=== PATIENT | male | born 1945 | race Caucasian/White ===

== ENCOUNTER 2023-03-12 19:05 | Emergency (ER) | payer MEDICARE ==
[2023-03-12] MEDS ORDERED: Sodium Chloride 0.9% 1000 ML 1,000 ML IV STA ×2 (19:26→20:14)
--- NOTE | 2023-03-12 19:44 | XRAY ---
CLINICAL HISTORY:Stroke COMPARISON:None. TECHNIQUE:Axial non-contrast CT scan of the brain was performed from the skull base to the high parietal region. ;CTDI 107.84 mGy, DLP 1211.47 mGycm. FINDINGS: Limited examination due to motion artifacts, degrading image quality at both frontal lobes anteriorly predominantly. No acute intracranial abnormality is present. No evidence of acute cortical infarction, hemorrhage, mass, or mass effect. There are periventricular areas of low attenuation throughout the deep white matter. Age-related central and cortical involutional brain changes are noted. No abnormal extra-axial fluid collections are present. The posterior fossa is unremarkable. The skull base and calvarium are intact. The included portions of the paranasal sinuses and mastoid air cells are clear. Rafia bullosa in the right middle turbinate appears infected. IMPRESSION: 1. Limited examination due to motion artifacts, degrading image quality at both frontal lobes anteriorly predominantly. 2. No acute intracranial abnormality is present. 3. Age-matched involutional brain changes. 4. Early changes of a stroke may not be detected on a CT scan. If strong clinical suspicion of stroke then suggest MRI with diffusion-weighted imaging. The [facility] ER was called at [phone] at 06:39 PM ACCESS RN, 03/12/2023 and results were verbally communicated to Jonny Siegel for the negative stroke. Electronically Signed by: Tavares Guillen MD. (03/12/2023 18:44:00 ACCESS RN)
[2023-03-12 20:05] LABS: Absolute Neutrophil Ct (ANC) 5.93 x10^3/uL (1.4-6.9); BASOPHIL % 0.4 % (0.0-0.4); Basophil (Absolute #) 0.03 x10^3/uL (0-0.4); Eosinophil % 0.1 % (0.00-5.0); Eosinophil (Absolute #) 0.01 x10^3/uL (0-0.5); Hematocrit 39.1 % (42-50); Hemoglobin 13.3 g/dL (12.5-18.0); IMMATURE GRAN # 0.03 x10^3u/L (0.00-0.03); IMMATURE GRAN % 0.4 % (0.00-0.4); Lymphocyte (Absolute #) 0.74 x10^3/uL (1.0-4.6); Lymphocytes % 10.4 % (24.0-44.0); Mean Cell Volume 91.6 fL (78-100); Mean Corpuscular Hemoglobin 31.1 pg (26-32); Mean Platelet Volume 10.6 fL (7.5-11.0); Monocyte (Absolute #) 0.39 x10^3/uL (0.0-1.3); Monocytes % 5.5 % (0.0-12.0); Neutrophil % 83.2 % (36.0-66.0); Platelet Count 307 x10^3/uL (150-450); Red Blood Count 4.27 x10^6/uL (4.1-5.6); Red Cell Distribution Width 13.3 % (11.5-14.0); White Blood Count 7.1 x10^3/uL (4.0-10.5)
[2023-03-12] MEDS ORDERED: Sodium Chloride 0.9% 1000 ML 1,000 ML ONE (20:10)
[2023-03-12 20:21] LABS: ALKALINE PHOSPHATASE 87 U/L (38-126); ANION GAP 13.1 MEQ/L (5-15); BLOOD UREA NITROGEN 19 mg/dL (9-20); CHLORIDE 92 mmol/L (98-107); Carbon Dioxide 24 mmol/L (22-30); Creatinine 1 0.54 mg/dL (0.66-1.25); EST GLOMERULAR FILTRATION RATE > 60.0 ML/MIN; Glucose 131 mg/dL (74-106); MAGNESIUM 2.2 mg/dL (1.6-2.3); Potassium 4.1 mmol/L (3.5-5.1); SGOT/AST 29 U/L (17-59); SGPT/ALT 23 U/L (0-50); SODIUM 125 mmol/L (137-145); Total Protein 6.7 g/dL (6.3-8.2)
--- NOTE | 2023-03-12 20:28 | ERPHSYRPT ---
- History of Present Illness Time Seen by Provider: 03/12/23 20:25 Source: patient, family, EMS Exam Limitations: no limitations Patient Subjective Stated Complaint: per ems, pt had seizure like activity- tonic clonic activity, while driving. was able to pull car over and pt was unresponsive for approx 10 minutes following. when ems arrived on scene. pt was agitated, confused, and combative. pt cont to have confusion, not combative at th is time. Triage Nursing Assessment: pt resting in bed. answers some questions. pt oriented to person only. skin warm and dry. pt incont of urine- strong odor noted. respirations nonlabored. pupils equal and reactive. no facial droop noted. pt moves upper ext without diff. lower ext weakness in pt's normal d/t polio. Physician History: per ems, pt had seizure like activity- tonic clonic activity, while driving. was able to pull car over and pt was unresponsive for approx 10 minutes following. when ems arrived on scene. pt was agitated, confused, and combative. pt cont to have confusion, not combative at th is time. Timing/Duration: today Severity: mild Character of Deficits: none Baseline/Normal Cognition: alert 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 Current Cognition: alert 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 Associated Symptoms: confusion, weakness, No loss of consciousness, No slurred speech Allergies/Adverse Reactions: No Known Drug Allergies Allergy (Verified 03/12/23 19:15) PER Home Medications: Unobtainable 03/12/23 [History] Hx Tetanus, Diphtheria Vaccination/Date Given: No (unsure) Hx Influenza Vaccination/Date Given: No Hx Pneumococcal Vaccination/Date Given: No Immunizations Up to Date: No Travel Risk - International Travel Have you traveled outside of the country in past 3 weeks: No - Coronavirus Screening Are you exhibiting any of the following symptoms?: No Close contact with a COVID-19 positive Pt in past 14-21 Days: No - Vaccine Status Have you recieved a Covid-19 vaccination: No (unsure) - Review of Systems Constitutional: No Fever, No Chills Eyes: No Symptoms Ears, Nose, & Throat: No Symptoms Respiratory: No Cough, No Dyspnea Cardiac: No Chest Pain, No Edema, No Syncope Abdominal/Gastrointestinal: No Abdominal Pain, No Nausea, No Vomiting, No Diarrhea Genitourinary Symptoms: Dysuria Musculoskeletal: No Back Pain, No Neck Pain Skin: No Rash Neurological: Seizure, No Dizziness, No Focal Weakness, No Gait Changes, No S ensory Changes Psychological: No Symptoms Endocrine: No Symptoms All Other Systems: Reviewed and Negative - Past Medical History Pertinent Past Medical History: Yes Cardiac History: Hypertension Other Medical History: hx of polio as a child with some mobility issues. recent dx of htn - Past Surgical History Other Surgical History: unsure - Social History Smoking Status: Former smoker Exposure to second hand smoke: No Drug Use: none Patient Lives Alone: No - Nursing Vital Signs Nursing Vital Signs: Initial Vital Signs Temperature 98.0 F 03/12/23 19:06 Pulse Rate 77 03/12/23 19:06 Respiratory Rate 16 03/12/23 19:06 Blood Pressure 140/85 03/12/23 19:06 O2 Sat by Pulse Oximetry 96 03/12/23 19:06 Pain Scale Pain Intensity 0 - [place] Coma Scale Best Eye Response (Cuco): (4) open spontaneously Best Verbal Response (Cuco): (5) oriented Best Motor Response (Cuco): (6) obeys commands [place] Total: 15 - Physical Exam General Appearance: no apparent distress, alert Eye Exam: bilateral eye: PERRL, EOMI Ears, Nose, Throat Exam: normal ENT inspection, moist mucous membranes Neck Exam: normal inspection, non-tender, supple Respiratory: normal breath sounds, lungs clear, airway intact, No respiratory distress Cardiovascular: regular rate/rhythm, No edema Gastrointestinal: soft, No tenderness, No distention Back Exam: normal inspection Extremity Exam: normal inspection, No pedal edema Mental Status: alert, 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, 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 Exam: normal hearing, normal speech, PERRL, tongue midline Coordination/Gait: normal finger to nose, normal gait Skin Exam: normal color, warm, dry, No rash SpO2: 96 - Course Nursing assessment & vital signs reviewed: Yes - Radiology Exams Chest X-ray Interpretation: Reviewed by me, Negative - CT Exams Head CT Interpretation: Tele-radiologist Report (negative), No/Intracranial Hemorrhag Ordered Tests: Active Orders 24 hr Category Date Time Status Power Checker STAT Care 03/12/23 19:19 Active EKG-ER Only STAT Care 03/12/23 19:18 Active IV Insertion STAT Care 03/12/23 19:18 Active NPO (ED) STAT Care 03/12/23 19:18 Active NPO (ED) STAT Care 03/12/23 19:27 Active CHEST 1 VIEW (PORTABLE) Stat Exams 03/12/23 19:27 Taken HEAD WITHOUT CONTRAST [CT] Stat Exams 03/12/23 19:07 Completed CBC W DIFF Stat Lab 03/12/23 19:40 Completed CMP Stat Lab 03/12/23 19:40 Completed ETHYL ALCOHOL Stat Lab 03/12/23 19:40 Completed MAGNESIUM Stat Lab 03/12/23 19:40 Completed TROPONIN Q4H Lab 03/12/23 19:40 Completed TROPONIN Q4H Lab 03/12/23 23:30 Ordered TROPONIN Q4H Lab 03/13/23 03:30 Ordered UA W/RFX UR CULTURE Stat Lab 03/12/23 20:29 Completed Urine Triage Profile Stat Lab 03/12/23 20:29 Completed Medication Summary Discontinued Medications Generic Name Dose Route Start Last Admin Trade Name Freq PRN Reason Stop Dose Admin Sodium Chloride 1,000 mls @ 999 mls/hr 03/12/23 19:26 03/12/23 20:15 Sodium Chloride 0.9% 1000 Ml IV 03/12/23 20:26 Not Given .Q1H1M STA Sodium Chloride Confirm 03/12/23 20:10 Sodium Chloride 0.9% 1000 Ml Administered 03/12/23 20:11 Dose 1,000 mls @ ud .ROUTE .STK-MED ONE Sodium Chloride 1,000 mls @ 999 mls/hr 03/12/23 20:14 03/12/23 21:19 Sodium Chloride 0.9% 1000 Ml IV 03/12/23 21:14 Infused .Q1H1M STA Infusion Lab/Rad Data: Laboratory Result Diagrams 03/12/23 19:40 03/12/23 19:40 Laboratory Results 03/12/23 03/12/23 03/12/23 Range/Units 20:29 20:29 19:40 WBC (4.0-10.5) x10^3/uL RBC (4.1-5.6) x10^6/uL Hgb (12.5-18.0) g/dL Hct (42-50) % MCV (78-100) fL MCH (26-32) pg MCHC (32-36) g/dL RDW (11.5-14.0) % Plt Count (150-450) x10^3/uL MPV (7.5-11.0) fL Gran % (36.0-66.0) % Immature Gran % (Auto) (0.00-0.4) % Nucleat RBC Rel Count (0.00-0.1) % Eos # (Auto) (0-0.5) x10^3/uL Immature Gran # (Auto) (0.00-0.03) x10^3u/L Absolute Lymphs (auto) (1.0-4.6) x10^3/uL Absolute Monos (auto) (0.0-1.3) x10^3/uL Absolute Nucleated RBC (0.00-0.01) x10^3u/L Lymphocytes % (24.0-44.0) % Monocytes % (0.0-12.0) % Eosinophils % (0.00-5.0) % Basophils % (0.0-0.4) % Absolute Granulocytes (1.4-6.9) x10^3/uL Basophils # (0-0.4) x10^3/uL Sodium 125 L (137-145) mmol/L Potassium 4.1 (3.5-5.1) mmol/L Chloride 92 L (98-107) mmol/L Carbon Dioxide 24 (22-30) mmol/L Anion Gap 13.1 (5-15) MEQ/L BUN 19 (9-20) mg/dL Creatinine 0.54 L (0.66-1.25) mg/dL Estimated GFR > 60.0 ML/MIN Glucose 131 H (74-106) mg/dL Calcium 9.0 (8.4-10.2) mg/dL Magnesium 2.2 (1.6-2.3) mg/dL Total Bilirubin 0.90 (0.2-1.3) mg/dL AST 29 (17-59) U/L ALT 23 (0-50) U/L Alkaline Phosphatase 87 (38-126) U/L Troponin I (0.000-0.034) ng/mL Serum Total Protein 6.7 (6.3-8.2) g/dL Albumin 4.0 (3.5-5.0) g/dL Urine Color Yellow (Yellow) Urine Appearance Clear (Clear) Urine pH 6.5 (4.6-8.0) Ur Specific Gabriels 1.010 (1.005-1.030) Urine Protein 30 (Negative) Urine Glucose (UA) Negative (Negative) mg/dL Urine Ketones Trace A (Negative) Urine Blood Negative (Negative) Urine Nitrite Negative (Negative) Urine Bilirubin Negative (Negative) Urine Urobilinogen 1.0 A (0.2) mg/dL Ur Leukocyte Esterase Negative (Negative) U Hyaline Cast (Auto) None Seen (0-2) /LPF Urine Microscopic RBC 0-2 (0-5) /HPF Urine Microscopic WBC 0-2 (0-5) /HPF Ur Epithelial Cells None Seen (None Seen) /HPF Urine Bacteria None Seen (None Seen) /HPF Urine Sperm Rare A (None Seen) /HPF Urine Culture Reflexed NO (NO) Urine Opiates Level NEGATIVE (NEGATIVE) Ur Methadone NEGATIVE (NEGATIVE) Urine Barbiturates NEGATIVE (NEGATIVE) Ur Phencyclidine (PCP) NEGATIVE (NEGATIVE) Urine Amphetamine NEGATIVE (NEGATIVE) U Benzodiazepine Level NEGATIVE (NEGATIVE) Urine Cocaine NEGATIVE (NEGATIVE) Urine Marijuana (THC) NEGATIVE (NEGATIVE) Ethyl Alcohol (0-10) mg/dL 03/12/23 03/12/23 03/12/23 Range/Units 19:40 19:40 19:40 WBC 7.1 (4.0-10.5) x10^3/uL RBC 4.27 (4.1-5.6) x10^6/uL Hgb 13.3 (12.5-18.0) g/dL Hct 39.1 L (42-50) % MCV 91.6 (78-100) fL MCH 31.1 (26-32) pg MCHC 34.0 (32-36) g/dL RDW 13.3 (11.5-14.0) % Plt Count 307 (150-450) x10^3/uL MPV 10.6 (7.5-11.0) fL Gran % 83.2 H (36.0-66.0) % Immature Gran % (Auto) 0.4 (0.00-0.4) % Nucleat RBC Rel Count 0.0 (0.00-0.1) % Eos # (Auto) 0.01 (0-0.5) x10^3/uL Immature Gran # (Auto) 0.03 (0.00-0.03) x10^3u/L Absolute Lymphs (auto) 0.74 L (1.0-4.6) x10^3/uL Absolute Monos (auto) 0.39 (0.0-1.3) x10^3/uL Absolute Nucleated RBC 0.00 (0.00-0.01) x10^3u/L Lymphocytes % 10.4 L (24.0-44.0) % Monocytes % 5.5 (0.0-12.0) % Eosinophils % 0.1 (0.00-5.0) % Basophils % 0.4 (0.0-0.4) % Absolute Granulocytes 5.93 (1.4-6.9) x10^3/uL Basophils # 0.03 (0-0.4) x10^3/uL Sodium (137-145) mmol/L Potassium (3.5-5.1) mmol/L Chloride (98-107) mmol/L Carbon Dioxide (22-30) mmol/L Anion Gap (5-15) MEQ/L BUN (9-20) mg/dL Creatinine (0.66-1.25) mg/dL Estimated GFR ML/MIN Glucose (74-106) mg/dL Calcium (8.4-10.2) mg/dL Magnesium (1.6-2.3) mg/dL Total Bilirubin (0.2-1.3) mg/dL AST (17-59) U/L ALT (0-50) U/L Alkaline Phosphatase (38-126) U/L Troponin I < 0.012 (0.000-0.034) ng/mL Serum Total Protein (6.3-8.2) g/dL Albumin (3.5-5.0) g/dL Urine Color (Yellow) Urine Appearance (Clear) Urine pH (4.6-8.0) Ur Specific Gabriels (1.005-1.030) Urine Protein (Negative) Urine Glucose (UA) (Negative) mg/dL Urine Ketones (Negative) Urine Blood (Negative) Urine Nitrite (Negative) Urine Bilirubin (Negative) Urine Urobilinogen (0.2) mg/dL Ur Leukocyte Esterase (Negative) U Hyaline Cast (Auto) (0-2) /LPF Urine Microscopic RBC (0-5) /HPF Urine Microscopic WBC (0-5) /HPF Ur Epithelial Cells (None Seen) /HPF Urine Bacteria (None Seen) /HPF Urine Sperm (None Seen) /HPF Urine Culture Reflexed (NO) Urine Opiates Level (NEGATIVE) Ur Methadone (NEGATIVE) Urine Barbiturates (NEGATIVE) Ur Phencyclidine (PCP) (NEGATIVE) Urine Amphetamine (NEGATIVE) U Benzodiazepine Level (NEGATIVE) Urine Cocaine (NEGATIVE) Urine Marijuana (THC) (NEGATIVE) Ethyl Alcohol < 10 (0-10) mg/dL CT/HEAD WITHOUT CONTRAST CLINICAL HISTORY:Stroke COMPARISON:None. TECHNIQUE:Axial non-contrast CT scan of the brain was performed from the skull base to the high parietal region. ;CTDI 107.84 mGy, DLP 1211.47 mGycm. FINDINGS: Limited examination due to motion artifacts, degrading image quality at both frontal lobes anteriorly predominantly. No acute intracranial abnormality is present. No evidence of acute cortical infarction, hemorrhage, mass, or mass effect. There are periventricular areas of low attenuation throughout the deep white matter. Age-related central and cortical involutional brain changes are noted. No abnormal extra-axial fluid collections are present. The posterior fossa is unremarkable. The skull base and calvarium are intact. The included portions of the paranasal sinuses and mastoid air cells are clear. Rafia bullosa in the right middle turbinate appears infected. IMPRESSION: 1. Limited examination due to motion artifacts, degrading image quality at both frontal lobes anteriorly predominantly. 2. No acute intracranial abnormality is present. 3. Age-matched involutional brain changes. 4. Early changes of a stroke may not be detected on a CT scan. If strong clinical suspicion of stroke then suggest MRI with diffusion-weighted imaging. - Progress Progress: improved Counseled pt/family regarding: lab results, diagnosis, need for follow-up, rad results Medical Desision Making - Diagnostic Testing Diagnostic test were ordered, analyzed, and reviewed by me: Yes Radiological Interpretation: Reviewed by me - Risk of complications Low Risk: Low risk of morbidity from additional dx testing or treatment The pt has a mod risk of morbidity or mortality based on: Diagnosis or treatment limited by SDOH - Departure Departure Disposition: Home Clinical Impression: Seizure disorder Condition: Stable Critical Care Time: No Referrals: DOCTOR,NO FAMILY [NON-STAFF PHY W/O PRIVILEGES] - Follow up/PCP as directed Instructions: Seizures, Adult (DC) Additional Instructions: Discharge/Care Plan LORENA ORTEGA was seen on 03/12/23 in the Emergency Room. The patient was counseled regarding Diagnosis,Lab results, Imaging studies, need for follow up and when to return to the Emergency Room. Prescriptions given: Discharge Note I have spoken with the patient and/or caregivers. I have explained the patient's condition, diagnosis and treatment plan based on the information available to me at this time. I have answered the patient's and/or caregiver's questions and addressed any concerns. The patient and/or caregivers have as good understanding of the patient's diagnosis, condition and treatment plan as can be expected at this point. The vital signs have been stable. The patient's condition is stable and appropriate for discharge from the emergency department. The patient will pursue further outpatient evaluation with the primary care physician or other designated or consulting physician as outlined in the discharge instructions. The patient and/or caregivers are agreeable to this plan of care and follow-up instructions have been explained in detail. The patient and/or caregivers have received these instruction. The patient/and or caregivers are aware that any significant change in condition or worsening of symptoms should prompt an immediate return to this or the closest emergency department or call 911. SHANNONLORENA Solorzano was seen on 03/12/23 n the Emergency Room. At that time you wer e treated for an emergent condition, during your visit Laboratory, Radiology and/or other procedures may have been ordered. It is very important that you follow-up with your Primary Care Physician LORENA JANE within the next 24-48 hours to review your Emergency Room visit and the final results of testing that was ordered. Some test results such as Urine Cultures, Blood Cultures, and other cultures if ordered will not be finalized for 24-48 hours. If you do not have a Primary Care Provider please call the medical records department at [phone] to obtain a copy of your results or you may sign into our patient portal to obtain these results by visiting us @ [email or web address] and completing the following steps: 1. Click on the Patient Portal link 2. Click the Patient Self Enrollment Link to complete the enrollment form and entering your 3. Once the enrollment form is completed you will receive an email with a temporary ID and password at the email address you provided. 4. Next choose a user name and password. Your user name must be at least 4 characters long and your password must be at least 4 characters long. 5. Choose a security question from the list and provide your answer to the question. If you already have signed into the Health Portal you may access your Health Care Information 28/02 by the following steps: 1. Login to our website @ [email or web address] 2. Enter your original user name and password. FAQS The [facility] Health Portal is an online tool that contains your Lab Results, Radiology Reports, Visit History, Discharge Instructions and Health Summary Lab and Radiology Results will not be available for 72 hours on the portal. The Portal is a secure site, passwords are encryted and URLs are re-written so they cannot be copied and pasted. You and authorized family members are the only ones who can access your Portal. Also there is a timeout feature that protects your information if you leave the Portal page open. If you have technical difficulty please use the Contact Us link on the page this will allow you to submit any questions you have regarding the Portal or you may contact the Medical Record Department at [phone].
[2023-03-12 20:30] VITALS: RESP 16; TEMP 98
[2023-03-12 21:17] LABS: Amphetamine,Urine NEGATIVE (NEGATIVE); Barbiturate,Urine NEGATIVE (NEGATIVE); Benzodiazepine,Urine NEGATIVE (NEGATIVE); Cocaine,Urine NEGATIVE (NEGATIVE); Methadone,Urine NEGATIVE (NEGATIVE); Opiate,Urine NEGATIVE (NEGATIVE); PCP,Urine NEGATIVE (NEGATIVE); THC,Urine NEGATIVE (NEGATIVE)
[2023-03-12 21:18] LABS: Appearance Clear (Clear); Bacteria None Seen /HPF (None Seen); Bilirubin Negative (Negative); Blood Negative (Negative); Epithelial Cells None Seen /HPF (None Seen); Glucose, Urine Negative (Negative); Ketones Trace (Negative); Leukocyte Esterase Negative (Negative); Nitrite Negative (Negative); Ph 6.5 (4.6-8.0); Protein,Urine Dip 30 (Negative); RBC 0-2 /HPF (0-5); WBC 0-2 /HPF (0-5)
[2023-03-12 21:19] LABS: ADD URINE CULTURE? NO (NO); Hyaline Casts None Seen /LPF (0-2); Sperm Rare /HPF (None Seen)
[2023-03-12 21:20] VITALS: BP 160/77; PULSE 59
[2023-03-12 21:30] VITALS: O2SAT 96
--- NOTE | 2023-03-13 08:37 | XRAY ---
Indication: Seizure. Comparison: None Portable apical lordotic chest hyperinflated and clear. Heart not enlarged. Bony thorax intact with osteopenia, moderate degenerative changes, and mild levoscoliosis.
== END 2023-03-12 21:57 | disposition home or self-care (01) ==
LOC: ED 19:05 → EDBD 19:05 → ED 21:57
DX: G40.909 Epilepsy, unspecified, not intractable, without status epilepticus (principal); I10 Essential (primary) hypertension
CPT/HCPCS: 36000; 36415; 70450; 71045; 80053; 80307; 81001; 82077; 83735; 84484; 85025; 93005; 93041; 99284